=== PATIENT | female | born 1970 | race Two or more races ===

== ENCOUNTER 2021-04-26 19:56 | Emergency (ER) | payer MEDICAID, OTHER ==
[~2021-04-26] VITALS: Ht 160 cm; Wt 95.3 kg
[2021-04-26 19:58] VITALS: BP 142/82
== END 2021-04-26 22:17 | disposition left against medical advice (07) ==
LOC: ER 20:06
DX: K08.89 Other specified disorders of teeth and supporting structures (principal); Z53.21 Procedure and treatment not carried out due to patient leaving prior to being seen by health care provider